=== PATIENT | female | born 1980 | race Caucasian/White ===

== ENCOUNTER 2017-11-06 18:10 | Emergency (ER) | payer SELFPAY ==
[2017-11-06 18:10] VITALS: BMI 29.0
[2017-11-06 18:59] VITALS: BP 119/79; PULSE 67; RESP 16; TEMP 98.1; O2SAT 98
[2017-11-06] MEDS ORDERED: Alum-Mag Hydrox-Simethicone Susp (30 mL) PO STA (19:42)
[2017-11-06] MEDS ORDERED: Alum-Mag Hydrox-Simethicone Susp (30 mL) ONE (19:57)
[2017-11-06 20:12] LABS: HEMOGLOBIN 12.8 g/dL (12.0-16.0); MEAN CELL VOLUME 90.8 fl (81.0-99.0); MEAN CORPUSCULAR HEMOGLOBIN 29.4 pg (27.0-31.0); MEAN CORPUSCULAR HGB CONC 32.4 g/dL (33.0-37.0); RBC 4.35 Mil/uL (3.80-5.20); RED CELL DISTRIBUTION WIDTH 13.3 % (11.5-14.5); WHITE BLOOD COUNT 7.9 K/uL (4.8-10.8)
--- NOTE | 2017-11-06 20:15 | ED PDOC ---
HPI: Abdomen Time Seen by Provider: 11/06/17 19:06 Chief Complaint (Nursing): Abdominal Pain Chief Complaint (Provider): Abdominal Pain History Per: Patient Onset/Duration Of Symptoms: Days (4x), Intermittent Episodes Quality Of Discomfort: Other (mild) Associated Symptoms: denies: Fever Last Bowel Movement: Today (soft and normal) Additional Complaint(s): 37 year old female with no past medical history presents to the ED complaining of epigastric abdominal pain onset four days ago. Reports the pain is mild and intermittent. It radiates down to her back. Patient states the pain is not related to her food consumption. Also reports of bloody stool four days ago; however today her last bowel movement was soft and normal. Denies fever or cough. Of note: patient is status post cholecystectomy PMD: No Family Provider Past Medical History Reviewed: Historical Data, Nursing Documentation, Vital Signs Vital Signs: Last Vital Signs Temp 98.1 F 11/06/17 18:55 Pulse 67 11/06/17 18:55 Resp 16 11/06/17 18:55 BP 119/79 11/06/17 18:55 Pulse Ox 98 11/06/17 21:31 - Medical History PMH: No Chronic Diseases - Surgical History Surgical History: Cholecystectomy - Family History Family History: States: Unknown Family Hx - Home Medications Home Medications: Ambulatory Orders Medication Instructions Recorded Levofloxacin [Levaquin] 500 mg PO DAILY 08/29/14 Oxycodone HCl/Acetaminophen 1 tab PO Q6 PRN 08/29/14 [Percocet 325 mg-5 mg] Docusate Sodium [Colace] 100 mg PO Q8 PRN 09/01/14 Oxycodone HCl/Acetaminophen 1 tab PO Q8 PRN 09/01/14 [Percocet 325 mg-5 mg] Omeprazole 20 mg PO DAILY #30 capsule. 11/06/17 - Allergies Allergies/Adverse Reactions: Allergies Allergy/AdvReac Type Severity Reaction Status Date / Time No Known Allergies Allergy Verified 08/29/14 10:18 Review of Systems ROS Statement: Except As Marked, All Systems Reviewed And Found Negative Constitutional: Negative for: Fever Respiratory: Negative for: Cough Gastrointestinal: Positive for: Abdominal Pain (epigastric) Genitourinary Female: Positive for: Other (bloody stool) Physical Exam - Reviewed Nursing Documentation Reviewed: Yes Vital Signs Reviewed: Yes - Physical Exam Appears: Positive for: Well, Non-toxic, No Acute Distress Head Exam: Positive for: ATRAUMATIC, NORMAL INSPECTION, NORMOCEPHALIC Skin: Positive for: Normal Color, Warm, Dry Eye Exam: Positive for: EOMI, Normal appearance, PERRL ENT: Positive for: Normal ENT Inspection Neck: Positive for: Normal, Painless ROM, Supple Cardiovascular/Chest: Positive for: Regular Rate, Rhythm. Negative for: Murmur , Bradycardia Respiratory: Positive for: Normal Breath Sounds. Negative for: Accessory Muscle Use, Wheezing, Respiratory Distress Gastrointestinal/Abdominal: Positive for: Tenderness (mild). Negative for: Guarding, Rebound Pelvic Exam: Positive for: External Exam Normal Back: Positive for: Normal Inspection. Negative for: L CVA Tenderness, R CVA Tenderness Rectal: Positive for: Tenderness (internal exam included tenderness on 12 and 3 o' clock (food technician was present)). Negative for: Mass Extremity: Positive for: Normal ROM. Negative for: Tenderness, Pedal Edema, Deformity Neurologic/Psych: Positive for: Alert, Oriented (x3), Gait - Laboratory Results Result Diagrams: 11/06/17 20:08 11/06/17 20:08 - ECG O2 Sat by Pulse Oximetry: 98 (RA) Pulse Ox Interpretation: Normal Medical Decision Making Medical Decision Making: Time: 19:42 Initial Impression: Gastritis and ulcer with internal hemorrhoid Initial Plan: --BMP --Lipase --ED --ED urine dipstick --CBC --Lidocaine 2% 15ml --Maalox Plus 30ml --Pepcid 20mg --Occult Blood, Stool --Reevaluation 930PM Pt. is feeling better. Advised patient to begin PPI and followup this week in clinic. Return precautions discussed. Documented by eKn Simeon acting as a scribe for Lorenzo Myers MD. All medical record entries made by the Scribe were at my direction and personally dictated by me. I have reviewed the chart and agree that the record accurately reflects my personal performance of the history, physical exam, medical decision making, and the department course for this patient. I have also personally directed, reviewed, and agree with the discharge instructions and disposition. Disposition - Clinical Impression Clinical Impression: Abdominal pain - Patient ED Disposition Is Patient to be Admitted: No - Disposition Referrals: [facility] [Outside] Disposition: Routine/Home Disposition Time: 21:30 Condition: GOOD Prescriptions: Omeprazole 20 mg PO DAILY #30 capsule. Instructions: Gastritis (DC), Bloody Stools, Adult (DC), Ulcer and Gastritis Diet Forms: [facility] [employer] (Portuguese) Print Language: MALAWIAN
[2017-11-06 20:38] LABS: BLOOD UREA NITROGEN 9 mg/dl (7-17); CALCIUM 8.5 mg/dL (8.4-10.2); GFR AFRICAN-AMERICAN > 60; GFR NON-AFRICAN AMERICAN > 60; LIPASE 158 U/L (23-300)
== END 2017-11-06 21:52 | disposition home or self-care (01) ==
LOC: H.ER 18:10
DX: R10.13 Epigastric pain (principal); K64.8 Other hemorrhoids
CPT/HCPCS: 80048; 81025; 83690; 85027; 99283; G0328

== ENCOUNTER 2018-02-19 07:36 | Emergency (ER) | payer SELFPAY ==
[2018-02-19 07:40] VITALS: TEMP 97.9
[2018-02-19 07:41] VITALS: BMI 27.1
[2018-02-19 07:47] VITALS: O2SAT 98
--- NOTE | 2018-02-19 09:24 | ED PDOC ---
HPI: Female Pain Time Seen by Provider: 02/19/18 08:00 Chief Complaint (Nursing): Abdominal Pain Chief Complaint (Provider): Watery discharge History Per: Patient History/Exam Limitations: no limitations Onset/Duration Of Symptoms: Days (x3) Current Symptoms Are (Timing): Still Present Additional Complaint(s): 37 year old female presents to the emergency department with complaints of "a gush of watery vaginal discharge" onset three days prior. Yesterday patient states that she tested positive for on an at-home test. she also co slight back pain and headache she has been experiencing. Denies fever, and odor to her discharge, vomiting, diarrhea, and vaginal bleeding. PMD: none provided Past Medical History Reviewed: Historical Data, Nursing Documentation, Vital Signs Vital Signs: Last Vital Signs Temp 97.9 F 02/19/18 07:39 Pulse 87 02/19/18 07:39 Resp 20 02/19/18 07:39 BP 114/70 02/19/18 07:39 Pulse Ox 98 02/19/18 07:44 - Medical History PMH: No Chronic Diseases - Surgical History Surgical History: Cholecystectomy - Family History Family History: States: Unknown Family Hx - Social History Current smoker - smoking cessation education provided: No Alcohol: None Drugs: Denies - Home Medications Home Medications: Ambulatory Orders Medication Instructions Recorded Levofloxacin [Levaquin] 500 mg PO DAILY 08/29/14 Oxycodone HCl/Acetaminophen 1 tab PO Q6 PRN 08/29/14 [Percocet 325 mg-5 mg] Docusate Sodium [Colace] 100 mg PO Q8 PRN 09/01/14 Oxycodone HCl/Acetaminophen 1 tab PO Q8 PRN 09/01/14 [Percocet 325 mg-5 mg] Omeprazole 20 mg PO DAILY #30 capsule. 11/06/17 - Allergies Allergies/Adverse Reactions: Allergies Allergy/AdvReac Type Severity Reaction Status Date / Time No Known Allergies Allergy Verified 08/29/14 10:18 Review of Systems ROS Statement: Except As Marked, All Systems Reviewed And Found Negative Constitutional: Negative for: Fever Gastrointestinal: Negative for: Vomiting, Diarrhea Genitourinary Female: Positive for: Vaginal Discharge (watery, odorless). Negative for: Vaginal Bleeding Musculoskeletal: Positive for: Back Pain Neurological: Positive for: Headache Physical Exam - Reviewed Nursing Documentation Reviewed: Yes Vital Signs Reviewed: Yes - Physical Exam Appears: Positive for: No Acute Distress Head Exam: Positive for: ATRAUMATIC, NORMOCEPHALIC Skin: Positive for: Normal Color, Warm, Dry Eye Exam: Positive for: Normal appearance Neck: Positive for: Normal Cardiovascular/Chest: Positive for: Regular Rate, Rhythm. Negative for: Murmur Respiratory: Positive for: Normal Breath Sounds. Negative for: Accessory Muscle Use, Respiratory Distress Gastrointestinal/Abdominal: Positive for: Normal Exam, Soft. Negative for: Tenderness Back: Positive for: Normal Inspection. Negative for: L CVA Tenderness, R CVA Tenderness Extremity: Positive for: Normal ROM Neurologic/Psych: Positive for: Alert (and awake), Oriented (x3) - Laboratory Results Result Diagrams: 02/19/18 09:15 02/19/18 09:15 - ECG O2 Sat by Pulse Oximetry: 98 (RA) Pulse Ox Interpretation: Normal Medical Decision Making Medical Decision Making: Initial Impression: positive w water discharge yesterday, now resolved r/o ectopic Time: 09:08 Initial Plan: --Type and screen --Beta-HCG --CBC with differential --Urine culture --Urinalysis --OB Transvag US 10:37 Transvag US FINDINGS: UTERUS: Measures 8.4 x 6.1 x 4.7 cm. Uterus appears retroverted with no prominent myometrial mass appreciable. Imaging of the endometrial cavity reveals the gestational sac with mean sac diameter 2.39 cm corresponds to a 7 week 0 day ultrasound age with pole measuring 0.47 cm mean indicating ultrasound age of 6 weeks 1 day. cardiac activity recorded 127 beats per minute. Yolk sac is identified measuring 0.23 cm. A 4 mm echo lucency is identified in the anterior inferior margins of the decidual reaction which is likely nonacute. There is a possibility this represents a cystic myometrial lesion prior to this gestation. No large decidual hemorrhage is seen at this time. ENDOMETRIUM: Measures mm in diameter. Unremarkable. CERVIX: No focal lesion is seen throughout the cervix with the cervical length measuring 3.6 cm. RIGHT OVARY: Measures 3.7 x 2.6 x 2.2 cm. No solid mass. Normal flow. Corpus luteum cyst identified measuring 2.0 x 1.8 x 1.4 cm. LEFT OVARY: Measures 3.7 x 2.7 x 1.0 cm. No solid mass. Normal flow. FREE FLUID: No significant free fluid noted. OTHER FINDINGS: None. IMPRESSION: A single viable intrauterine gestation is identified within the endometrial cavity within average ultrasonic age of 6 weeks 1 day as discussed above. No prominent hemorrhage related to the decidual reaction although a 4 mm cyst is questioned related to the deep lower uterine segment endometrium or possibly the subchorionic space, unlikely rib reflect an acute finding. Clinical and sonographic follow-up are advised. Right corpus luteum cyst identified. 12:40 Pt was informed of US results and instructions to follow up with an Ob/ Radioisotope Production Operator for further evaluation and workup. pt resting comfortably in bed in no distress.. Patient will be discharged. Scribe Attestation: Documented by Katharine Carbajal, acting as a scribe for Cristiano Kang MD Provider Scribe Attestation: All medical entries made by the Scribe were at my direction and personally dictated by me. I have reviewed the chart and agree that the record accurately reflects my personal performance of the history, physical exam, medical decision making, and the department course for this patient. I have also personally directed, reviewed, and agree with the discharge instructions and disposition. Disposition - Clinical Impression Clinical Impression: Abdominal pain during - Patient ED Disposition Is Patient to be Admitted: No Counseled Patient/Family Regarding: Studies Performed, Diagnosis, Need For Followup - Disposition Referrals: [facility] [Outside] [facility] [Outside] Disposition: Routine/Home Disposition Time: 10:30 Condition: IMPROVED Additional Instructions: follow up with your primary administrative coordinator in 1-2 days return to the ED with any worsening or concerning symptoms Instructions: Symptoms Forms: [employer] (Tongan) Print Language: ARABIC
[2018-02-19 09:38] LABS: BASO # 0.1 K/uL (0.0-0.2); BASO % 0.7 % (0.0-2.0); EOS # 0.4 K/uL (0.0-0.7); EOS % 6.5 % (0.0-4.0); HEMOGLOBIN 14.3 g/dL (12.0-16.0); LYMPH # 1.4 K/uL (1.0-4.3); LYMPH % 20.7 % (20.0-40.0); MEAN CELL VOLUME 90.2 fl (81.0-99.0); MEAN CORPUSCULAR HEMOGLOBIN 31.4 pg (27.0-31.0); MEAN CORPUSCULAR HGB CONC 34.8 g/dL (33.0-37.0); MEAN PLATELET VOLUME 8.8 fl (7.2-11.7); MONO # 0.3 K/uL (0.0-0.8); MONO % 4.8 % (0.0-10.0); NEUT # 4.7 K/uL (1.8-7.0); NEUT % 67.3 % (50.0-75.0); NRBC % 0.2 % (0.0-0.0); RBC 4.57 Mil/uL (3.80-5.20); RED CELL DISTRIBUTION WIDTH 13.1 % (11.5-14.5)
[2018-02-19 09:44] LABS: SQUAMOUS EPITHIAL 18 /hpf (0-5); URINE BACTERIA RARE (<OCC); URINE BILIRUBIN NEGATIVE (NEGATIVE); URINE BLOOD NEGATIVE (NEGATIVE); URINE CLARITY CLOUDY (Clear); URINE COLOR YELLOW (YELLOW); URINE GLUCOSE (UA) NEG (Normal); URINE LEUKOCYTE ESTERASE TRACE Leu/uL (Negative); URINE PROTEIN NEGATIVE (NEGATIVE); URINE UROBILINOGEN 0.2-1.0 mg/dL (0.2-1.0)
[2018-02-19 09:54] LABS: ALB/GLOB RATIO 1.1 (1.0-2.1); ALBUMIN 3.7 g/dL (3.5-5.0); ALT/SGPT 23 U/L (9-52); AST/SGOT 19 U/L (14-36); BLOOD UREA NITROGEN 6 mg/dl (7-17); CALCIUM 8.3 mg/dL (8.4-10.2); GFR AFRICAN-AMERICAN > 60; GFR NON-AFRICAN AMERICAN > 60
--- NOTE | 2018-02-19 10:39 | US ---
HISTORY: ; last menstrual period is 12/26/2017 suggesting gestational age of 7 weeks 6 days. COMPARISON: None available. TECHNIQUE: Transvaginal pelvic ultrasound was performed with longitudinal and transverse images submitted for interpretation. FINDINGS: UTERUS: Measures 8.4 x 6.1 x 4.7 cm. Uterus appears retroverted with no prominent myometrial mass appreciable. Imaging of the endometrial cavity reveals the gestational sac with mean sac diameter 2.39 cm corresponds to a 7 week 0 day ultrasound age with pole measuring 0.47 cm mean indicating ultrasound age of 6 weeks 1 day. cardiac activity recorded 127 beats per minute. Yolk sac is identified measuring 0.23 cm. A 4 mm echo lucency is identified in the anterior inferior margins of the decidual reaction which is likely nonacute. There is a possibility this represents a cystic myometrial lesion prior to this gestation. No large decidual hemorrhage is seen at this time. ENDOMETRIUM: Measures mm in diameter. Unremarkable. CERVIX: No focal lesion is seen throughout the cervix with the cervical length measuring 3.6 cm. RIGHT OVARY: Measures 3.7 x 2.6 x 2.2 cm. No solid mass. Normal flow. Corpus luteum cyst identified measuring 2.0 x 1.8 x 1.4 cm. LEFT OVARY: Measures 3.7 x 2.7 x 1.0 cm. No solid mass. Normal flow. FREE FLUID: No significant free fluid noted. OTHER FINDINGS: None. IMPRESSION: A single viable intrauterine gestation is identified within the endometrial cavity within average ultrasonic age of 6 weeks 1 day as discussed above. No prominent hemorrhage related to the decidual reaction although a 4 mm cyst is questioned related to the deep lower uterine segment endometrium or possibly the subchorionic space, unlikely rib reflect an acute finding. Clinical and sonographic follow-up are advised. Right corpus luteum cyst identified.
[2018-02-19 12:58] VITALS: BP 118/74; PULSE 83; RESP 18
== END 2018-02-19 12:52 | disposition home or self-care (01) ==
LOC: H.ER 07:36
DX: O26.891 Other specified pregnancy related conditions, first trimester (principal); R10.2 Pelvic and perineal pain; N89.8 Other specified noninflammatory disorders of vagina; Z3A.01 Less than 8 weeks gestation of pregnancy

== ENCOUNTER 2018-09-20 17:32 | Emergency (ER) | payer OTHER, SELFPAY ==
[2018-09-20 17:33] VITALS: BMI 27.1
[2018-09-20 18:57] VITALS: BP 124/70; PULSE 83; RESP 16; TEMP 99; O2SAT 98
--- NOTE | 2018-09-20 23:43 | ED PDOC ---
HPI: Female Pain Time Seen by Provider: 09/20/18 22:58 Chief Complaint (Nursing): Female Genitourinary Chief Complaint (Provider): Female Genitourinary History Per: Patient History/Exam Limitations: no limitations Onset/Duration Of Symptoms: Days (x1) Current Symptoms Are (Timing): Still Present Additional Complaint(s): 38 year old female, at approximately 4 weeks in , presents to ED for 1 episode of vaginal bleeding and mild abdominal "fullness" since this morning. Patient denies painful urination, vaginal discharge of bloody clots or tissue. She has not had bleeding since onset but reports her period has been aba therapist than usual and irregular since a miscarriage 6 months ago at 12 weeks gestation. PCP: Dr. Jason Lynch Past Medical History Reviewed: Historical Data, Nursing Documentation, Vital Signs Vital Signs: Last Vital Signs Temp 99.0 F 09/20/18 18:53 Pulse 83 09/20/18 18:53 Resp 16 09/20/18 18:53 BP 124/70 09/20/18 18:53 Pulse Ox 98 09/20/18 18:53 - Medical History PMH: No Chronic Diseases - Surgical History Surgical History: Cholecystectomy - Family History Family History: States: Unknown Family Hx - Home Medications Home Medications: Ambulatory Orders Medication Instructions Recorded Levofloxacin [Levaquin] 500 mg PO DAILY 08/29/14 Oxycodone HCl/Acetaminophen 1 tab PO Q6 PRN 08/29/14 [Percocet 325 mg-5 mg] Docusate Sodium [Colace] 100 mg PO Q8 PRN 09/01/14 Oxycodone HCl/Acetaminophen 1 tab PO Q8 PRN 09/01/14 [Percocet 325 mg-5 mg] RX: Omeprazole 20 mg PO DAILY #30 capsule. 11/06/17 - Allergies Allergies/Adverse Reactions: Allergies Allergy/AdvReac Type Severity Reaction Status Date / Time No Known Allergies Allergy Verified 09/20/18 18:52 Review of Systems ROS Statement: Except As Marked, All Systems Reviewed And Found Negative Gastrointestinal: Positive for: Abdominal Pain (fullness) Genitourinary Female: Positive for: Vaginal Bleeding. Negative for: Dysuria, Vaginal Discharge (or blood clots/tissues) Physical Exam - Reviewed Nursing Documentation Reviewed: Yes Vital Signs Reviewed: Yes - Physical Exam Appears: Positive for: Well, Non-toxic, No Acute Distress Head Exam: Positive for: ATRAUMATIC, NORMAL INSPECTION, NORMOCEPHALIC Skin: Positive for: Normal Color Eye Exam: Positive for: Normal appearance, EOMI, PERRL ENT: Positive for: Normal ENT Inspection Neck: Positive for: Normal, Supple Cardiovascular/Chest: Positive for: Regular Rate, Rhythm Respiratory: Positive for: Normal Breath Sounds. Negative for: Respiratory Dis tress Gastrointestinal/Abdominal: Positive for: Normal Exam, Soft. Negative for: Tenderness Back: Positive for: Normal Inspection. Negative for: L CVA Tenderness, R CVA Tenderness Extremity: Positive for: Normal ROM (upper/lower) Neurologic/Psych: Positive for: Alert, Oriented. Negative for: Motor/Sensory Deficits - Laboratory Results Result Diagrams: 09/20/18 23:59 09/20/18 23:59 - ECG O2 Sat by Pulse Oximetry: 98 (RA) Pulse Ox Interpretation: Normal Medical Decision Making Medical Decision Making: Time: 2308 Initial Plan: work-up for vaginal bleeding to rule-out miscarriage vs. possible implantation bleed. * Labs * US pelvis Time: 00:00 --Patient endorsed to Dr. Barajas, pending lab and US results. Provider discussed with patient that US may not be beneficial if hormones are not high enough. Scribe Attestation: Documented by Melinda Mason, acting as a scribe for Bhavana Archer MD. Provider Scribe Attestation: All medical record entries made by the Scribe were at my direction and personally dictated by me. I have reviewed the chart and agree that the record accurately reflects my personal performance of the history, physical exam, medical decision making, and the department course for this patient. I have also personally directed, reviewed, and agree with the discharge instructions and disposition. Disposition - Clinical Impression Clinical Impression: Threatened - Disposition [facility] [[facility] Disposition: Transfer of Care Disposition Time: 00:00 Condition: STABLE Instructions: Threatened Miscarriage Forms: [employer] (Swedish) Print Language: OCCITAN
[2018-09-21 00:19] LABS: BASO # 0.1 K/uL (0.0-0.2); BASO % 0.7 % (0.0-2.0); EOS # 0.3 K/uL (0.0-0.7); EOS % 4.9 % (0.0-4.0); HEMOGLOBIN 13.8 g/dL (12.0-16.0); LYMPH # 2.1 K/uL (1.0-4.3); MEAN CELL VOLUME 91.4 fl (81.0-99.0); MEAN CORPUSCULAR HEMOGLOBIN 30.5 pg (27.0-31.0); MEAN CORPUSCULAR HGB CONC 33.4 g/dL (33.0-37.0); MEAN PLATELET VOLUME 8.4 fl (7.2-11.7); MONO # 0.5 K/uL (0.0-0.8); MONO % 7.3 % (0.0-10.0); NEUT # 4.1 K/uL (1.8-7.0); NEUT % 58.1 % (50.0-75.0); NRBC % 0.2 % (0.0-0.0); RBC 4.54 Mil/uL (3.80-5.20); RED CELL DISTRIBUTION WIDTH 13.3 % (11.5-14.5); WHITE BLOOD COUNT 7.1 K/uL (4.8-10.8)
--- NOTE | 2018-09-21 00:22 | ED PDOC ---
- Laboratory Results Result Diagrams: 09/20/18 23:59 09/20/18 23:59 - ECG O2 Sat by Pulse Oximetry: 98 (RA) Medical Decision Making Medical Decision Making: Time: 00:00 --Patient endorsed to provider by Dr. Archer, pending lab and US transvaginal results. Time: :00 --Beta-HC mIU/mL. Time: 105 --US OB transvag Findings: The uterus measures 6.2x4.4x5.4 cm. Retroverted uterus. Endometrium is normal in thickness measuring 12 mm. Normal cervix measuring 2.7 cm in its length. Unremarkable right ovary. Unremarkable left ovary. No free pelvic fluid is noted. Impression: No intrauterine is seen. Time: 013 --Upon re-evaluation, patient remains medically stable in ED. Results of lab and US were relayed to patient. Provider advised repeat Beta-HCG in 2-3 days and fo llow up with CONTENT ANALYST once an appointment is secure. There is agreement to discharge plan. Return if symptoms persist or worsen. Clinical Impression: Threatened ----- Scribe Attestation: Documented by Melinda Mason, acting as a scribe for Denis Barajas MD. Provider Scribe Attestation: All medical record entries made by the Scribe were at my direction and persona lly dictated by me. I have reviewed the chart and agree that the record accurately reflects my personal performance of the history, physical exam, medical decision making, and the department course for this patient. I have also personally directed, reviewed, and agree with the discharge instructions and disposition. Disposition - Clinical Impression Clinical Impression: Threatened - POA Present On Arrival: None - Disposition [facility] [[facility]] Disposition: Routine/Home Disposition Time: 01:30 Condition: STABLE Instructions: Threatened Miscarriage Forms: [employer] (Monegasque) Print Language: JORDANIAN
[2018-09-21 00:37] LABS: BLOOD UREA NITROGEN 8 mg/dl (7-17); GFR NON-AFRICAN AMERICAN > 60
[2018-09-21 01:04] LABS: SQUAMOUS EPITHIAL 2 /hpf (0-5); URINE BACTERIA RARE (<OCC); URINE BILIRUBIN NEGATIVE (NEGATIVE); URINE BLOOD NEGATIVE (NEGATIVE); URINE CALCIUM OXALATE CRYSTALS MOD /hpf (<OCC); URINE CLARITY CLOUDY (Clear); URINE COLOR YELLOW (YELLOW); URINE GLUCOSE (UA) NEG (NEGATIVE); URINE LEUKOCYTE ESTERASE NEG Leu/uL (Negative); URINE PROTEIN NEGATIVE (NEGATIVE); URINE UROBILINOGEN 0.2-1.0 mg/dL (0.2-1.0)
--- NOTE | 2018-09-21 13:31 | US ---
Date of service: 09/21/2018 HISTORY: 4 weeks . Positive test. One episode of bleeding. LMP 08/25/2018 COMPARISON: None available. TECHNIQUE: Standard protocol for this study/examination. FINDINGS: UTERUS: Measures 4.4 x 5.4 x 6.2 cm. Normal in size and appearance. No fibroid or other mass lesion seen. ENDOMETRIUM: Measures 11.9 mm in diameter. No ultrasound findings to suggest gestational sac, fluid, debris, mass or polyp or other pathologic process within the endometrium. CERVIX: No cervical abnormality identified. RIGHT OVARY: Measures 1.4 x 1.6 x 2.7 cm. No solid mass. Normal flow. Multiple subcentimeter follicles. LEFT OVARY: Measures 2.4 x 2.1 x 3.2 cm. No solid mass. Normal flow. FREE FLUID: No significant free fluid noted. OTHER FINDINGS: None. IMPRESSION: No visible intrauterine gestation or ectopic products of gestation. Additional benign and/or incidental findings described above. Concordant findings (preliminary report) provided by [employer].
== END 2018-09-21 01:16 | disposition home or self-care (01) ==
LOC: H.ER 17:32
DX: O20.0 Threatened abortion (principal); Z3A.12 12 weeks gestation of pregnancy

== ENCOUNTER 2018-10-10 10:41 | Emergency (ER) | payer SELFPAY ==
[2018-10-10 10:45] VITALS: BMI 29.0
[2018-10-10 10:46] VITALS: RESP 18; TEMP 98; O2SAT 98
[2018-10-10 11:39] LABS: BASO % 0.6 % (0.0-2.0); EOS # 0.1 K/uL (0.0-0.7); HEMOGLOBIN 12.9 g/dL (12.0-16.0); LYMPH # 1.5 K/uL (1.0-4.3); LYMPH % 21.7 % (20.0-40.0); MEAN CELL VOLUME 93.1 fl (81.0-99.0); MEAN CORPUSCULAR HEMOGLOBIN 31.1 pg (27.0-31.0); MEAN CORPUSCULAR HGB CONC 33.4 g/dL (33.0-37.0); MEAN PLATELET VOLUME 8.7 fl (7.2-11.7); MONO # 0.4 K/uL (0.0-0.8); MONO % 6.2 % (0.0-10.0); NEUT # 4.7 K/uL (1.8-7.0); NEUT % 69.5 % (50.0-75.0); NRBC % 0.1 % (0.0-0.0); RBC 4.15 Mil/uL (3.80-5.20); WHITE BLOOD COUNT 6.8 K/uL (4.8-10.8)
[2018-10-10 11:51] LABS: ALB/GLOB RATIO 1.1 (1.0-2.1); ALBUMIN 3.7 g/dL (3.5-5.0); ALT/SGPT 23 U/L (9-52); AST/SGOT 20 U/L (14-36); BLOOD UREA NITROGEN 3 mg/dl (7-17); CALCIUM 8.6 mg/dL (8.4-10.2); GFR NON-AFRICAN AMERICAN > 60
[2018-10-10 11:53] LABS: SQUAMOUS EPITHIAL 3 /hpf (0-5); URINE BILIRUBIN NEGATIVE (NEGATIVE); URINE BLOOD NEGATIVE (NEGATIVE); URINE CLARITY CLOUDY (Clear); URINE COLOR YELLOW (YELLOW); URINE GLUCOSE (UA) NEG (NEGATIVE); URINE LEUKOCYTE ESTERASE SMALL Leu/uL (Negative); URINE PROTEIN 30 mg/dL (NEGATIVE); URINE UROBILINOGEN 0.2-1.0 mg/dL (0.2-1.0)
--- NOTE | 2018-10-10 13:31 | US ---
Date of service: 10/10/2018 PROCEDURE: OB Pelvic Ultrasound HISTORY: Lower abd pain LMP: 08/25/2018 COMPARISON: Pelvic ultrasound dated 09/21/2018. FINDINGS: UTERUS: Gestational sac: Single intrauterine gestation. Measures 3.4 cm compatible with estimated gestational age of 8 weeks, 3 days Yolk sac: Present measuring 0.4 cm pole: Navarino-rump length measures 1.2 cm compatible with estimated gestational age of 7 weeks, 3 days Heart rate: 147 bpm. age (Ultrasound estimated): 8 weeks, 0 days Brandie-gestational hemorrhage: None. Date of delivery (Ultrasound estimated) : 05/22/2019 Uterus measures 8.9 x 6.0 x 7.2 cm. Normal in size and appearance. CERVIX: Long and closed. No cervical abnormality seen. RIGHT OVARY: Measures 2.6 x 1.2 x 1.3 cm. No mass lesion. Normal flow. LEFT OVARY: Measures 3.0 x 1.9 x 2.2 cm. Corpus luteum measuring 2.0 x 1.3 x 0.5 cm. Normal flow. FREE FLUID: None. OTHER FINDINGS: None. IMPRESSION: Single live intrauterine gestation with average ultrasound age of 8 weeks, 0 days. heart rate 147 beats per minute. Cervix long and closed.
--- NOTE | 2018-10-10 14:17 | ED PDOC ---
HPI: Female Pain Time Seen by Provider: 10/10/18 10:54 Chief Complaint (Nursing): Abdominal Pain Chief Complaint (Provider): Abdominal Pain History Per: Patient History/Exam Limitations: no limitations Onset/Duration Of Symptoms: Days (x 2) Current Symptoms Are (Timing): Still Present Quality Of Discomfort: "Pain" Associated Symptoms: denies: Fever, Vomiting, Diarrhea Additional Complaint(s): 38 year old female with no significant medical history presents to the ED with lower abdominal pain for the last two days. Patient is approximately 7 weeks and denies vaginal bleeding, dysuria, fever, vomiting and diarrhea. PMD: Clinic Abnormal Vaginal Bleeding: No : 2 Para: 0 Past Medical History Reviewed: Historical Data, Nursing Documentation, Vital Signs Vital Signs: Last Vital Signs Temp 98 F 10/10/18 10:45 Pulse 82 10/10/18 10:45 Resp 18 10/10/18 10:45 BP 96/60 L 10/10/18 10:45 Pulse Ox 98 10/10/18 10:45 - Medical History PMH: No Chronic Diseases - Surgical History Surgical History: Cholecystectomy - Family History Family History: States: Unknown Family Hx - Home Medications Home Medications: Ambulatory Orders Medication Instructions Recorded Levofloxacin [Levaquin] 500 mg PO DAILY 08/29/14 Oxycodone HCl/Acetaminophen 1 tab PO Q6 PRN 08/29/14 [Percocet 325 mg-5 mg] Docusate Sodium [Colace] 100 mg PO Q8 PRN 09/01/14 Oxycodone HCl/Acetaminophen 1 tab PO Q8 PRN 09/01/14 [Percocet 325 mg-5 mg] Omeprazole 20 mg PO DAILY #30 capsule. 11/06/17 Pnv No.95/Ferrous Fum/Folic AC 1 each PO DAILY #30 tablet 10/10/18 [ Vitamin Tablet] - Allergies Allergies/Adverse Reactions: Allergies Allergy/AdvReac Type Severity Reaction Status Date / Time No Known Allergies Allergy Verified 10/10/18 11:02 Review of Systems ROS Statement: Except As Marked, All Systems Reviewed And Found Negative Constitutional: Negative for: Fever, Chills Gastrointestinal: Positive for: Abdominal Pain (lower). Negative for: Nausea, Vomiting, Diarrhea Genitourinary Female: Negative for: Dysuria, Frequency, Vaginal Discharge, Vaginal Bleeding Physical Exam - Reviewed Nursing Documentation Reviewed: Yes Vital Signs Reviewed: Yes - Physical Exam Appears: Positive for: Non-toxic, No Acute Distress Head Exam: Positive for: ATRAUMATIC, NORMAL INSPECTION, NORMOCEPHALIC Skin: Positive for: Normal Color, Warm, Dry Eye Exam: Positive for: EOMI, Normal appearance, PERRL Neck: Positive for: Normal, Painless ROM, Supple Cardiovascular/Chest: Positive for: Regular Rate, Rhythm. Negative for: Murmur Respiratory: Positive for: Normal Breath Sounds. Negative for: Respiratory Distress Gastrointestinal/Abdominal: Positive for: Normal Exam, Soft. Negative for: Tenderness, Mass, Guarding, Rebound Back: Positive for: Normal Inspection. Negative for: L CVA Tenderness, R CVA Tenderness Extremity: Positive for: Normal ROM (x 4). Negative for: Deformity Neurologic/Psych: Positive for: Alert, Oriented (x 3). Negative for: Motor/Sensory Deficits - Laboratory Results Result Diagrams: 10/10/18 11:22 10/10/18 11:22 Lab Results: Total Bilirubin 0.9 mg/dl (0.2-1.3) 10/10/18 11:22 AST 20 U/L (14-36) 10/10/18 11:22 ALT 23 U/L (9-52) 10/10/18 11:22 Alkaline Phosphatase 52 U/L (38-126) 10/10/18 11:22 Total Protein 7.0 G/DL (6.3-8.2) 10/10/18 11:22 Albumin 3.7 g/dL (3.5-5.0) 10/10/18 11:22 Globulin 3.3 gm/dL (2.2-3.9) 10/10/18 11:22 Albumin/Globulin Ratio 1.1 (1.0-2.1) 10/10/18 11:22 Urine Color Yellow (YELLOW) 10/10/18 11:20 Urine Clarity Cloudy (Clear) 10/10/18 11:20 Urine pH 6.0 (5.0-8.0) 10/10/18 11:20 Ur Specific [place] 1.010 (1.003-1.030) 10/10/18 11:20 Urine Protein 30 mg/dL (NEGATIVE) 10/10/18 11:20 Urine Glucose (UA) Neg mg/dL (NEGATIVE) 10/10/18 11:20 Urine Ketones Negative mg/dL (NEGATIVE) 10/10/18 11:20 Urine Blood Negative (NEGATIVE) 10/10/18 11:20 Urine Nitrate Negative (NEGATIVE) 10/10/18 11:20 Urine Bilirubin Negative (NEGATIVE) 10/10/18 11:20 Urine Urobilinogen 0.2-1.0 mg/dL (0.2-1.0) 10/10/18 11:20 Ur Leukocyte Esterase Small [place]/uL (Negative) 10/10/18 11:20 Urine RBC (Auto) 2 /hpf (0-3) 10/10/18 11:20 Urine Microscopic WBC 1 /hpf (0-5) 10/10/18 11:20 Ur Squamous Epith Cells 3 /hpf (0-5) 10/10/18 11:20 Beta HCG, Quant 970480.00 mIU/mL 10/10/18 11:22 - ECG O2 Sat by Pulse Oximetry: 98 (RA) Pulse Ox Interpretation: Normal Medical Decision Making Medical Decision Makin:18 Impression: lower abdominal pain in Initial Plan: --Beta- HCG --CMP --CBC --urine dip --Urine preg --OB Pelvic US --UA Time: 13:27 PROCEDURE: OB Pelvic Ultrasound HISTORY: Lower abd pain LMP: 08/25/2018 COMPARISON: Pelvic ultrasound dated 09/21/2018. FINDINGS: UTERUS: Gestational sac: Single intrauterine gestation. Measures 3.4 cm compatible with estimated gestational age of 8 weeks, 3 days Yolk sac: Present measuring 0.4 cm pole: [place]-rump length measures 1.2 cm compatible with estimated gestational age of 7 weeks, 3 days Heart rate: 147 bpm. age (Ultrasound estimated): 8 weeks, 0 days Bradnie-gestational hemorrhage: None. Date of delivery (Ultrasound estimated) : 05/22/2019 Uterus measures 8.9 x 6.0 x 7.2 cm. Normal in size and appearance. CERVIX: Long and closed. No cervical abnormality seen. RIGHT OVARY: Measures 2.6 x 1.2 x 1.3 cm. No mass lesion. Normal flow. LEFT OVARY: Measures 3.0 x 1.9 x 2.2 cm. Corpus luteum measuring 2.0 x 1.3 x 0.5 cm. No rmal flow. FREE FLUID: None. OTHER FINDINGS: None. IMPRESSION: Single live intrauterine gestation with average ultrasound age of 8 weeks, 0 days. heart rate 147 beats per minute. Cervix long and closed. Scribe Attestation: Documented by Brittany Gomez acting as a scribe for Mary Ellen Ramirez MD Provider Scribe Attestation: All medical record entries made by the Scribe were at my direction and personally dictated by me. I have reviewed the chart and agree that the record accurately reflects my personal performance of the history, physical exam, medical decision making, and the department course for this patient. I have also personally directed, reviewed, and agree with the discharge instructions and disposition. Disposition - Clinical Impression Clinical Impression: Abdominal pain during - Patient ED Disposition Is Patient to be Admitted: No - Disposition Referrals: [facility] [Outside] [facility] [[facility]] Disposition: Routine/Home Disposition Time: 14:20 Condition: IMPROVED Prescriptions: Pnv No.95/Ferrous Fum/Folic AC [ Vitamin Tablet] 1 each PO DAILY #30 tablet Instructions: Pitfalls After Age 35, Acute Abdomen (Belly Pain), Adul t (DC) Forms: [employer] (Citizen Of [place]) Print Language: [id number]
[2018-10-10 21:00] VITALS: BP 115/86; PULSE 85
== END 2018-10-10 14:18 | disposition home or self-care (01) ==
LOC: H.ER 10:41
DX: O26.899 Other specified pregnancy related conditions, unspecified trimester (principal)